=== PATIENT | female | born 1950 | race Caucasian/White ===

== ENCOUNTER 2024-06-09 23:45 | Observation (INO) | payer MEDICARE, OTHER ==
[2024-06-10 01:07] LABS: #Basophils 0.05 10x3/uL (0.0-0.2); %Basophils 0.6 % (0.0-1.0); %Eosinophils 0.7 % (0.0-10.0); %Lymphocytes 11.4 % (21.0-51.0); %Monocytes 5.7 % (0.0-10.0); %Neutrophils 81.1 % (42.0-75.0); Hematocrit 38.9 % (36.0-47.0); Hemoglobin 12.3 g/dL (12.0-16.0); Mean Corpuscular HGB CONC 31.6 g/dL (32.0-36.0); Mean Corpuscular Hemoglobin 27.6 pg (27.0-31.0); Mean Corpuscular Volume 87.2 fL (78.0-98.0); Mean Platelet Volume 10.6 fL (7.4-10.4); Platelet Count 217 10x3/uL (130-400); RBC Distribution Width 13.8 % (11.5-14.5); Red Blood Cell (RBC) Count 4.46 mill/uL (4.20-5.40)
[2024-06-10 01:23] LABS: ALT (SGPT) 61 U/L (8-55); AST (SGOT) 31 U/L (5-34); Albumin 3.9 g/dL (3.4-4.8); Alkaline Phosphatase 339 U/L (40-110); Anion Gap 16 mmol/L (10-20); BUN (Urea Nitrogen) 15 mg/dL (9.8-20.1); Bilirubin, Total 0.4 mg/dL (0.2-1.2); Calc. Creatinine Clearance 0 mL/min (70-130); Calcium 10.3 mg/dL (7.8-10.44); Carbon Dioxide 22 mmol/L (23-31); Chloride 109 mmol/L (98-107); Estimated GFR 92; Globulin 3.4 g/dL (2.4-3.5); Glucose 146 mg/dL (83-110); Lipase 9 U/L (8-78); Potassium 3.6 mmol/L (3.5-5.1); Protein, Total 7.3 g/dL (5.8-8.1); Sodium 143 mmol/L (136-145)
[2024-06-10 01:29] LABS: Troponin I Less than 0.010 ng/mL (< 0.028)
[2024-06-10] MEDS ORDERED: Ketorolac Tromethamine 30 MG (1 mL) VIAL ONE (02:50)
[2024-06-10] MEDS ORDERED: Morphine 4 MG/ML VIAL ONE (02:50)
[2024-06-10 03:44] LABS: Bilirubin Negative (Negative); Blood, Urine 3+ (Negative); CAUTI Indications for Culture Acute Hematuria; Calcium Oxalate Crystals 1+ HPF (None Seen); Clarity Extra Turbid (Clear); Glucose, Urine (Dipstick) Normal (Negative); Ketone, Urine Trace mg/dL (Negative); Leukocyte 25 Leu/uL (Negative); Mucous/LPF Rare LPF (<2+); Nitrite Negative (Negative); Protein, Urine (Dipstick) 70 mg/dL (Neg-Trace); RBC/HPF Greater than 50 HPF (0-3); Squamous Epithelial 0-3 HPF (0-3); Urobilinogen Normal mg/dL (Less than 2); WBC/HPF 21-50 HPF (0-3); pH, Urine 5.5 (5.0-9.0)
[2024-06-10 03:45] LABS: Bacteria/HPF 1+ HPF (None Seen); Specific Gravity, Urine 1.044 (1.002-1.036)
[2024-06-10 03:46] LABS: Urine Culture Reflex Yes Yes
[2024-06-10] MEDS ORDERED: Sodium Chloride 0.9% 100 ML ONE (06:03)
[2024-06-10] MEDS ORDERED: cefTRIAXone (ROCEPHIN) 1 GM VIAL ONE (06:03)
[2024-06-10] MEDS ORDERED: Ondansetron PF 4 MG/2 ML Vial IVP PRN ×2 (08:15→09:09)
[2024-06-10] MEDS ORDERED: Ondansetron ODT 4 MG TAB SL PRN (08:15)
[2024-06-10] MEDS ORDERED: Acetaminophen 325 MG TAB PO PRN (08:47)
[2024-06-10] MEDS ORDERED: Senokot S 8.6-50 MG TAB PO PRN (08:47)
[2024-06-10] MEDS ORDERED: Acetaminophen 650 MG Suppository PR PRN (08:47)
[2024-06-10] MEDS ORDERED: Bisacodyl 5 MG TAB PO PRN (08:47)
[2024-06-10] MEDS: Lactated Ringer's 1,000 ML IV SCH (09:04)
[2024-06-10] MEDS ORDERED: Ondansetron ODT 4 MG TAB PO PRN (09:09)
[2024-06-10] MEDS ORDERED: LevoFLOXacin D5W 500 mg (100 mL) BAG ONE (11:10)
[2024-06-10] MEDS ORDERED: Lidocaine 2% PF 5 ML VIAL ONE (11:16)
[2024-06-10] MEDS ORDERED: PROPOFOL 20 ML ONE (11:16)
[2024-06-10] MEDS ORDERED: Iopamidol-370 76% 500 ML MDV (1 ML CHARGE) ONE (11:56)
[2024-06-10] MEDS ORDERED: Iopamidol 30 ML ONE (13:23)
[2024-06-10] MEDS ORDERED: Ketamine In 0.9 % NaCl 50 MG/5 ML SYRINGE ONE (13:56)
[2024-06-10] MEDS ORDERED: Ondansetron PF 4 MG/2 ML Vial ONE (14:00)
[2024-06-10] MEDS ORDERED: Dexamethasone 4 mg/ml Vial ONE (14:00)
[2024-06-10] MEDS ORDERED: ePHEDrine Sulfate 50 MG/10 ML VIAL ONE (14:05)
[2024-06-10] MEDS ORDERED: PHENYLEPHRINE-NS 100 MCG/ML 10 ML SYRINGE ONE (14:20)
[2024-06-10] MEDS ORDERED: Mag-Al 1200 mg/1200 mg/30 ML UDCUP PO PRN (14:44)
[2024-06-10] MEDS ORDERED: Acetaminophen 500 MG TAB PO PRN (14:44)
[2024-06-10] MEDS ORDERED: fentaNYL 50 mcg/mL 1 mL Vial ONE (15:35)
[2024-06-10 16:33] VITALS: BMI 30.5
[2024-06-10] MEDS: traMADol HCl 50 MG TAB PO SCH (20:29)
[2024-06-10] MEDS: Docusate 100 MG CAP PO SCH (20:29)
[2024-06-10] MEDS: Gabapentin 400 MG CAP PO SCH (20:29)
[2024-06-10] MEDS: busPIRone HCl 10 MG TAB PO SCH (20:29)
[2024-06-10] MEDS: tiZANidine HCl 4 MG TAB PO SCH (20:29)
[2024-06-10] MEDS: traZODone HCl 150 MG TAB PO SCH (21:56)
[2024-06-10] MEDS: Oxybutynin 5 MG TAB PO PRN (21:56)
[2024-06-11] MEDS: cefTRIAXone\\ROCEPHIN 1 GM in Sodium Chloride 0.9% 100 ML IVPB SCH (05:16)
[2024-06-11 06:57] LABS: #Basophils 0.03 10x3/uL (0.0-0.2); %Basophils 0.6 % (0.0-1.0); %Eosinophils 0.8 % (0.0-10.0); %Lymphocytes 29.2 % (21.0-51.0); %Monocytes 7.3 % (0.0-10.0); %Neutrophils 61.7 % (42.0-75.0); Hematocrit 35.6 % (36.0-47.0); Hemoglobin 11.1 g/dL (12.0-16.0); Mean Corpuscular HGB CONC 31.2 g/dL (32.0-36.0); Mean Corpuscular Hemoglobin 26.7 pg (27.0-31.0); Mean Corpuscular Volume 85.8 fL (78.0-98.0); Mean Platelet Volume 11.5 fL (7.4-10.4); Platelet Count 203 10x3/uL (130-400); RBC Distribution Width 14.1 % (11.5-14.5); Red Blood Cell (RBC) Count 4.15 mill/uL (4.20-5.40)
[2024-06-11 07:25] LABS: Anion Gap 11 mmol/L (10-20); BUN (Urea Nitrogen) 12 mg/dL (9.8-20.1); Calc. Creatinine Clearance 101 mL/min (70-130); Calcium 9.5 mg/dL (7.8-10.44); Carbon Dioxide 22 mmol/L (23-31); Chloride 113 mmol/L (98-107); Estimated GFR 93; Glucose 100 mg/dL (83-110); Potassium 4.1 mmol/L (3.5-5.1); Sodium 142 mmol/L (136-145)
[2024-06-11] MEDS: Pantoprazole DR 40 MG TAB PO SCH (08:39)
[2024-06-11] MEDS: tiZANidine HCl 4 MG TAB PO SCH ×3 (08:39→16:57)
[2024-06-11] MEDS: Sodium Chloride 0.9% 1,000 ML IV SCH (15:40)
[2024-06-11] MEDS: traZODone HCl 150 MG TAB PO SCH (21:27)
[2024-06-12 04:40] VITALS: TEMP 97.8
[2024-06-12 13:17] VITALS: BP 118/73
[2024-06-18 12:17] LABS: CA Oxalate Dihydrate 40 % (.); CA Oxalate Monohydrate 50 % (.); Color Tan (.); Stone Weight 7 mg (.)
== END 2024-06-12 13:28 | disposition home or self-care (01) ==
LOC: ERS 23:45 → SURG A 06-10 08:01
PROVIDERS: ADMIT Internal Medicine; ATTEND Internal Medicine
PROC: 0TC68ZZ Extirpation of Matter from Right Ureter, Via Natural or Artificial Opening Endoscopic (ICD-10-PCS; principal; 2024-06-09)
PROC: 0T768DZ Dilation of Right Ureter with Intraluminal Device, Via Natural or Artificial Opening Endoscopic (ICD-10-PCS; 2024-06-09)
DX: N13.2 Hydronephrosis with renal and ureteral calculous obstruction (principal); N21.0 Calculus in bladder; N28.9 Disorder of kidney and ureter, unspecified; F32.A Depression, unspecified; F41.9 Anxiety disorder, unspecified; G43.909 Migraine, unspecified, not intractable, without status migrainosus; I20.9 Angina pectoris, unspecified; K21.9 Gastro-esophageal reflux disease without esophagitis; R60.0 Localized edema; I10 Essential (primary) hypertension; G90.50 Complex regional pain syndrome I, unspecified; G47.30 Sleep apnea, unspecified; G47.10 Hypersomnia, unspecified; Z91.018 Allergy to other foods; Z91.040 Latex allergy status; Z88.8 Allergy status to other drugs, medicaments and biological substances; Z87.891 Personal history of nicotine dependence; Z88.1 Allergy status to other antibiotic agents
CPT/HCPCS: 51701; 52356; 74177; 74420; 80048; 80053; 81001; 82365; 83690; 84484; 85025 ×2; 87040; 87086; 94760; 96374; 96375; 99285; C2617; G0378 ×2; J0696 ×3; J1100; J1885; J1956; J2001; J2272; J2405; J2704; J3010; J3490; J7030 ×2; J7120; Q9967 ×2; 36415; 88300